=== PATIENT | male | born 1995 | race Two or more races ===

== ENCOUNTER 2020-07-14 22:21 | Emergency (ER) | payer SELFPAY ==
[~2020-07-14] VITALS: Ht 180.3 cm; Wt 81.6 kg
--- NOTE | 2020-07-14 22:35 | NUR ---
patient looks slightly anxious
--- NOTE | 2020-07-14 22:35 | NUR ---
dr taylor at bedside, patient complained of spider bites that is sligtly red with abcess on the left middle stomach , smal drainage noted complains of pain 5/10
[2020-07-14] MEDS ORDERED: CEFTRIAXONE 1 G VIAL IM ONE (22:45)
[2020-07-14] MEDS ORDERED: HYDROCODONE/APAP 10-325 MG TABLET PO ONE (22:45)
[2020-07-14] MEDS ORDERED: SULFAMETH/TRIMETH 800/160 MG TABLET PO ONE (22:45)
[2020-07-14] MEDS ORDERED: ONDANSETRON ODT 4 MG TAB.RAPDIS SL ONE (22:45)
[2020-07-14] MEDS ORDERED: HYDROCODONE/APAP 10-325 MG TABLET ONE (22:49)
[2020-07-14] MEDS ORDERED: SULFAMETH/TRIMETH 800/160 MG TABLET ONE (22:50)
[2020-07-14] MEDS ORDERED: ONDANSETRON ODT 4 MG TAB.RAPDIS ONE (22:51)
[2020-07-14] MEDS ORDERED: CEFTRIAXONE 1 G VIAL ONE (22:51)
[2020-07-14] MEDS ORDERED: LIDOCAINE HCL 1% 20 ML VIAL ONE (22:52)
--- NOTE | 2020-07-14 23:05 | NUR ---
dr taylor is at bedside explained results of xray , treatment , referrals , , patient verbalizes understanding
--- NOTE | 2020-07-14 23:15 | NUR ---
discharge , ambulatory accompanied by significant others, instructed not to drive , and pcp , prescription given and explained and verbalizes understanding
== END 2020-07-14 23:27 | disposition home or self-care (01) ==
LOC: ER 22:25
DX: L02.211 Cutaneous abscess of abdominal wall (principal); L03.311 Cellulitis of abdominal wall; R21 Rash and other nonspecific skin eruption; G89.21 Chronic pain due to trauma; S52.124G Nondisplaced fracture of head of right radius, subsequent encounter for closed fracture with delayed healing; X58.XXXD Exposure to other specified factors, subsequent encounter
CPT/HCPCS: 73080; 96372; 99284; J0696; J3490; A4663; Q0162

== ENCOUNTER 2020-08-16 11:12 | Emergency (ER) | payer SELFPAY ==
[~2020-08-16] VITALS: Ht 180.3 cm; Wt 81.6 kg
--- NOTE | 2020-08-16 11:23 | NUR ---
PT IS IN ROOM #2A. DR MUNOZ EVALUATED THE PT.
[2020-08-16] MEDS ORDERED: CEPH-570 PO (11:25)
[2020-08-16] MEDS ORDERED: SULF1TAB48 PO (11:25)
[2020-08-16] MEDS ORDERED: HYDROCODONE/APAP 10-325 MG TABLET PO ONE (11:30)
[2020-08-16] MEDS ORDERED: HYDROCODONE/APAP 10-325 MG TABLET ONE (11:50)
--- NOTE | 2020-08-16 12:12 | NUR ---
PT WAS D/C'd TO HOME. D/C INSTRUCTIONS GIVEN TO THE PT BY DR MUNOZ.
[2020-08-16 12:33] VITALS: BP 135/77
== END 2020-08-16 12:34 | disposition home or self-care (01) ==
LOC: ER 11:12
DX: S90.822D Blister (nonthermal), left foot, subsequent encounter (principal); S90.821D Blister (nonthermal), right foot, subsequent encounter; L03.116 Cellulitis of left lower limb; L03.115 Cellulitis of right lower limb; X58.XXXD Exposure to other specified factors, subsequent encounter; M79.672 Pain in left foot; M79.671 Pain in right foot
CPT/HCPCS: A4663